=== PATIENT | male | born 1945 | race Caucasian/White ===

== ENCOUNTER 2022-08-02 11:28 | Day surgery (SDC) | payer MEDICARE, BC ==
[2022-08-02] VITALS (7 sets, daily range): BP systolic 113–170; BP diastolic 73–99
[~2022-08-02] VITALS: Ht 182.9 cm; Wt 106.5 kg
[2022-08-02] MEDS ORDERED: normal saline 1,000 ML IV SCH (11:50)
[2022-08-02] MEDS ORDERED: LORazepam 0.5 MG tablet PO PRN (11:50)
[2022-08-02] MEDS ORDERED: iohexol 350 MG/ML 50ML vial IV ONE (11:57)
[2022-08-02] MEDS ORDERED: LIDOcaine 1% 30ml preserv. free vial ONE (11:58)
[2022-08-02] MEDS ORDERED: WARF-55 PO (12:00)
[2022-08-02] MEDS ORDERED: TES100C PO (12:00)
[2022-08-02] MEDS ORDERED: SACU1TAB7 PO (12:00)
[2022-08-02] MEDS ORDERED: FURO40TA4 PO (12:00)
[2022-08-02] MEDS ORDERED: METO-395 PO (12:00)
[2022-08-02] MEDS ORDERED: ROSU40TA22 PO (12:00)
[2022-08-02] MEDS ORDERED: VITAMIN B12 PO (12:08)
[2022-08-02] MEDS ORDERED: MAGNESIUM PO (12:08)
[2022-08-02] MEDS ORDERED: OCCUVITE (12:08)
[2022-08-02] MEDS ORDERED: ASCO500C17 PO (12:08)
[2022-08-02] MEDS ORDERED: CHOL500050 PO (12:08)
[2022-08-02] MEDS ORDERED: MULT-1085 PO (12:08)
[2022-08-02] MEDS ORDERED: ZINC PO (12:08)
--- NOTE | 2022-08-02 13:08 | NUR ---
Dr. Edilberto Card notified of INR 2.3, states ok to proceed with procedure.
[2022-08-02] MEDS ORDERED: proCHLORperazine 10 MG/2 ml inj ONE (13:55)
[2022-08-02] MEDS ORDERED: fentaNYL/PF 50MCG/1 ML 2ML syringe ONE (13:55)
[2022-08-02] MEDS ORDERED: midazolam 1 mg/ML 2ml injection ONE (13:56)
[2022-08-02] MEDS ORDERED: HYDROcodone/acetaminophen 5mg/325mg tablet PO PRN (15:30)
[2022-08-02] MEDS ORDERED: HYDROcodone/acetaminophen 10/325mg tab PO PRN (15:30)
--- NOTE | 2022-08-02 16:00 | NUR ---
Suture to right groin removed, no s/s bleeding or hematoma.
[2022-08-03 06:34] LABS: ISTAT Hct MIX 46 %PCV (42-52); ISTAT O2 SATURATION MIX VENOUS 66 % (60-80); ISTAT SOURCE BLNK
== END 2022-08-02 17:45 | disposition home or self-care (01) ==
LOC: SSTAY O 11:28
PROVIDERS: ATTEND Internal Medicine Interventional Cardiology
DX: I11.0 Hypertensive heart disease with heart failure (principal); I50.22 Chronic systolic (congestive) heart failure; I48.91 Unspecified atrial fibrillation; I25.10 Atherosclerotic heart disease of native coronary artery without angina pectoris; Z95.5 Presence of coronary angioplasty implant and graft; Z79.01 Long term (current) use of anticoagulants; Z79.899 Other long term (current) drug therapy; Z86.718 Personal history of other venous thrombosis and embolism
CPT/HCPCS: 33289; 36415; 76937; 82803; 85014; 85610; 93005; 99152; 99153; C1751; C1769; C1892; C1894; C2624; J0780; J1644; J2250; J3010; J3490; J7030; Q9967; A6258; A6449

== ENCOUNTER 2025-02-14 13:24 | Outpatient (CLI) | payer MEDICARE, BC ==
[~2025-02-14 13:24] MED LIST: ASCO500C17 PO; BENZ-111 PO; CHOL500050 PO; FURO40TA4 PO; MAGNESIUM PO; METO-395 PO; MULT-1085 PO; OCCUVITE; ROSU40TA89 PO; SACU1TAB7 PO; VITAMIN B12 PO; WARF-55 PO; ZINC PO
--- NOTE | 2025-02-14 19:09 | CONSULTATION ---
DATE OF CONSULTATION: 02/14/2025 DICTATING PHYSICIAN: Paige Cantu M.S., [facility]-DRUG ROOM OPERATOR MODIFIED BARIUM SWALLOW STUDY REFERRING PHYSICIAN: Rohit Smith MD HISTORY OF PRESENT ILLNESS: The patient is a 79-year-old male and consents to this evaluation. History was obtained from the patient, the patient's who is present for evaluation, and medical records. The patient reports symptoms of dysphagia including a productive cough that can occur either before or after eating and drinking. He reports that this never occurs at the time of eating and drinking. He notes that he has had symptoms of reflux for the last week or so, but he typically does not have any symptoms. He reports that this cough has been occurring for the past 3 years since his last surgery. This was a knee surgery in which a heart condition started soon after that surgery. The patient has benign thyroid nodules. He also has congestive heart failure. He had an allergy shot a couple of weeks ago in which this has decreased some of the productive cough that he has been experiencing throughout the day. He notes that when this cough occurs that he eventually brings up phlegm and that is what stops the cough. CURRENT DIET: The patient is currently on a regular textured thin liquid diet. In terms of caffeine, he has a Coke from [employer] twice weekly. He does not utilize tobacco products or drink alcohol. He consumes a piece of chocolate about once a week. In terms of dairy products, the patient will have milk with a cereal or ice cream a couple of times a week. A typical breakfast consists of a protein bar and shake, scrambled eggs and toast or cereal. He does not snack in the morning. A typical lunch may be hamburger, fries, and a Coke from [employer] or sandwich and fruit. He does not snack in the afternoon. Dinner is eaten between 7 and 8 p.m. in the summer or at 6 in the winter and may be a salad, steak, chicken, or fish. He has a dessert of peach cobbler, an ice cream bar, or cookies at 9 p.m. and goes to bed between 11 and 11:30. MEDICATIONS: Entresto 49.5 mg, furosemide 40 mg, Eliquis 5 mg, atorvastatin 20 mg, metoprolol succinate 25 mg, furosemide 10 mg. PARAMETERS: The patient is seated in the lateral 90-degree view and administered the usual protocol of thin and nectar thick liquids, puree and solid consistencies, as well as self-regulated boluses of thin liquids from a cup. RESULTS: In the oral stage of the swallow, the patient is easily able to transfer the bolus from the anterior to the posterior oral cavity. There does not appear to be any difficulty with strength or range of motion of the tongue as there is no lingual rocking and tongue base retraction is adequate; however, the patient does utilize a piecemeal swallow and utilizes spontaneous second swallows to clear the bolus from the oral cavity. He has a mild to moderate oral residue following the initial swallow of boluses. In the pharyngeal stage of the swallow, swallow initiation is delayed to the level of the pyriforms for thin liquid boluses and to the level of the vallecula for nectar thick liquid boluses. Delayed swallow initiation can be due to decreased activation of cranial nerve 9, which initiates the swallow reflex. Anterior movement of the posterior pharyngeal wall is observed. Elevation of the hyothyroid complex is accomplished with full range of motion. There is no pharyngeal residue noted after the tail of the bolus passes and PES opening is within functional limits. At no time was the patient noted to penetrate or aspirate on any of the bolus sizes or consistencies. ANTERIOR, POSTERIOR VIEW: In the AP plane, the bolus split symmetrically between the pyriform sinuses and there was proximal movement of the various boluses to the level of the clavicle. IMPRESSION: The patient demonstrates with what appears to be a moderate pharyngoesophageal stage swallowing disorder characterized by delayed swallow initiation to the level of the pyriforms for thin liquid boluses and the level of the vallecula for thick liquid boluses as well as proximal movement of the boluses in the AP view to the level of the clavicle. DIAGNOSES: R13.14, dysphagia, pharyngoesophageal phase; K21.9, gastroesophageal reflux disease. PATIENT EDUCATION: Immediately following modified barium swallow study, the patient and his were able to view the results. The normal anatomy of the swallowing mechanism was revealed. The patient and his were able to see the delayed swallow initiation and were educated on the reason for this. They were also educated on dietary modifications for laryngopharyngeal reflux disease. RECOMMENDATIONS: * It is recommended that the patient follow the aforementioned dietary modifications for laryngopharyngeal reflux disease. * Although the patient does have delayed swallow initiation, this does not appear to be impacting the patient's swallow at this time, and as he is not coughing while eating and drinking and there was no penetration or aspiration observed during the study, and so swallowing therapy would not be indicated at this time. If, however, he starts to have problems during the swallow in the future, a course of swallowing therapy may be indicated at that time. LONG-TERM GOALS: The patient will maintain adequate hydration/nutrition with optimum safety and efficiency of swallow function on p.o. intake without overt signs and symptoms of aspiration for the highest possible diet level. FUNCTIONAL ORAL INTAKE: The FOIS was administered to establish and document a change in the functional eating activities of this patient over time. This is a 7-point scale with 1 indicating no oral intake and totally tube dependent and 7 indicating total oral intake with no restrictions. This patient received a 6, which indicates he has a total oral diet with multiple consistencies without special preparation, but with specific food limitations and precautions. G-CODE: [id number]. Thank you very much for asking me to participate in the care of this kind patient. Should you have any questions regarding this evaluation or recommendations, please do not hesitate to contact me at [phone]. During this examination, 3:13 minutes of fluoroscopy time and 39.29 CAK mGy were utilized. Paige Cantu M.S., [facility]-DRUG ROOM OPERATOR TID: [id number] RECEIPT: [id number] SARA LEWIS
--- NOTE | 2025-02-16 11:22 | CONSULTATION ---
DATE OF CONSULTATION: 02/14/2025 DICTATING PHYSICIAN: Paige Cantu M.S., [facility] MODIFIED BARIUM SWALLOW STUDY REPORT REFERRING PHYSICIAN: Rohit Smith MD. HISTORY OF PRESENT ILLNESS: The patient is a 79-year-old male and consents to this evaluation. In history obtained from the patient and medical records, the patient reports symptoms of dysphagia including a productive cough that occurs throughout the day. He reports that this typically does not occur as he is eating and drinking, but can occur before or after. In the last week or so, he has had symptoms of reflux, but typically he does not experience them. The patient has a medical history of congestive heart failure. He reports that he has had several surgeries and at about 3 years ago was his last surgery in which his heart condition started at around that time. He notes that he will begin coughing until phlegm comes up and then he stops coughing. The patient also has a history of benign thyroid nodules. He has taken Pepcid in the past and has gone through sinus treatments without any improvement in his cough. CURRENT DIET: In terms of caffeine, the patient has [employer] En[employer] Here. Paige Cantu M.S., [facility] TID: [id number] RECEIPT: [id number] NAVI LEWIS
== END 2025-02-14 23:59 | disposition home or self-care (01) ==
LOC: RAD 13:24
PROVIDERS: ATTEND Otolaryngology
DX: R13.10 Dysphagia, unspecified (principal); K21.9 Gastro-esophageal reflux disease without esophagitis
CPT/HCPCS: 74230